=== PATIENT | male | born 1980 | race Caucasian/White ===

== ENCOUNTER 2016-06-30 09:45 | Observation (INO) | payer MEDICAID ==
[~2016-06-30 09:45] MED LIST: ALLOPURINOL300 M1 PO; BACTRIM; BACTRIM DS TAB1 EAC2 PO; COLACE100 M1 PO; COMPAZINE10 MG PO; MILK OF MAGNESIA PO; MIRALAX17 G2 PO; NO HOME MEDICATION XX; OMEPRAZOLE20 M3 PO; WELLBUTRIN XL150 M1 PO; ZOFRAN8 M1 PO
[2016-06-30] MEDS ORDERED: NORCO 5-325 TA1 EACH PO (10:33)
[2016-06-30] MEDS ORDERED: ZOFRAN8 M1 PO (10:33)
[2016-06-30] MEDS ORDERED: CLARITIN10 M6 PO (10:33)
[2016-06-30] MEDS ORDERED: BACTRIM DS TAB1 EAC2 PO (10:42)
[2016-06-30 10:56] LABS: EOS % 11.1 % (0-7); HGB-HEMOGLOBIN 12.5 gm/dl (13.5-17.0); LYMPH % 80.5 % (20-45); MCH (MEAN CORPUSCULAR HGB) 31.1 pg (28.0-32.0); MCHC MEAN CORPUSCULAR HGB CONC 34.7 % (32.0-36.0); MCV (MEAN CELL VOLUME) 89.6 fl (82.0-96.0); MEAN PLATELET VOLUME 10.7 cmc (9.4-12.4); MONO % 2.8 % (0-12); PLATELET COUNT 111 tho/cmm (150-450); RED BLOOD COUNT 4.02 mil/cmm (4.40-5.70); RED CELL DISTRIBUTION WIDTH 13.1 % (12.4-16.4)
[2016-06-30 11:03] LABS: BASO % 5.6 % (0-2); LYMPH ABSOLUTE COUNT 0.3 tho/cmm (0.8-4.5)
[2016-06-30 11:05] LABS: WHITE BLOOD COUNT 0.4 tho/cmm (4.0-10.0)
[2016-06-30 11:13] LABS: ALB/GLOB RATIO 0.8 (0.8-2.0); ALBUMIN 3.2 g/dl (3.5-5.0); ALKALINE PHOSPHATASE 82 U/L (33-138); ALT/SGPT 26 U/L (12-78); ANION GAP 11 mmol/L (0-20); AST/SGOT 15 U/L (10-40); BILIRUBIN,TOTAL 0.6 mg/dl (0.0-1.5); BLOOD UREA NITROGEN 24 mg/dl (6-24); CARBON DIOXIDE-VENOUS 29 mmol/L (22-32); CHLORIDE 96 mmol/l (96-110); CREATININE 1.08 mg/dl (0.60-1.30); GLUCOSE 103 mg/dL (70-110); LIPASE 56 U/L (73-393); POTASSIUM 4.3 mmol/L (3.7-5.1); SODIUM 132 mmol/L (135-145); eGFR VALUE FOR BLACK >90 mL/Min
[2016-06-30 11:33] LABS: URINE BILIRUBIN NEGATIVE (NEG); URINE BLOOD SMALL (NEG); URINE GLUCOSE (UA) NEGATIVE (NEG); URINE KETONE NEGATIVE (NEG); URINE LEUKOCYTE ESTERASE NEGATIVE (NEG); URINE NITRITE NEGATIVE (NEG); URINE PROTEIN SMALL (NEG)
[2016-06-30 11:38] LABS: URINE APPEARANCE CLEAR; URINE COLOR YELLOW
[2016-06-30 11:46] LABS: URINE WBC 0-3 /[HPF] (0-5)
[2016-07-01 05:02] LABS: BASO % 2.7 % (0-2); EOS % 8.1 % (0-7); HCT-HEMATOCRIT 32.2 % (36.0-53.5); LYMPH % 75.7 % (20-45); LYMPH ABSOLUTE COUNT 0.3 tho/cmm (0.8-4.5); MCH (MEAN CORPUSCULAR HGB) 30.7 pg (28.0-32.0); MCHC MEAN CORPUSCULAR HGB CONC 34.2 % (32.0-36.0); MCV (MEAN CELL VOLUME) 89.9 fl (82.0-96.0); MEAN PLATELET VOLUME 10.2 cmc (9.4-12.4); MONO % 5.4 % (0-12); NEUTROPHILS % 8.1 % (40-80); PLATELET COUNT 104 tho/cmm (150-450); RED BLOOD COUNT 3.58 mil/cmm (4.40-5.70); RED CELL DISTRIBUTION WIDTH 13.3 % (12.4-16.4)
[2016-07-01 05:09] LABS: WHITE BLOOD COUNT 0.4 tho/cmm (4.0-10.0)
[2016-07-01 05:13] LABS: ANION GAP 12 mmol/L (0-20); BLOOD UREA NITROGEN 20 mg/dl (6-24); CALCIUM 8.8 mg/dl (8.5-10.5); CARBON DIOXIDE-VENOUS 28 mmol/L (22-32); CHLORIDE 98 mmol/l (96-110); CREATININE 1.05 mg/dl (0.60-1.30); GLUCOSE 112 mg/dL (70-110); POTASSIUM 4.6 mmol/L (3.7-5.1); SODIUM 133 mmol/L (135-145); eGFR VALUE FOR BLACK >90 mL/Min
[2016-07-01] MEDS ORDERED: MILK OF MAGNESIA PO (11:19)
[2016-07-01] MEDS ORDERED: COLACE100 M1 PO (11:19)
[2016-07-01] MEDS ORDERED: NEUPOGEN SC (11:19)
[2016-07-01] MEDS ORDERED: SENOKOT-S TABL1 EACH PO (11:20)
[2016-07-02] MEDS ORDERED: ULTRAM50 M1 PO (10:56)
[2016-11-11] MEDS ORDERED: FEOSOL325 M1 PO (17:47)
[2016-11-11] MEDS ORDERED: VITAMIN B-12250 MC2 PO (17:48)
[2016-11-11] MEDS ORDERED: PROTONIX40 M2 PO (17:48)
[2016-11-11] MEDS ORDERED: ATIVAN0.5 M1 PO (17:49)
[2016-11-11] MEDS ORDERED: DEXAMETHASONE4 M1 PO (17:50)
[2016-11-11] MEDS ORDERED: ZOFRAN4 M2 PO (17:52)
[2016-11-14] MEDS ORDERED: MIRALAX17 G2 PO (14:47)
[2016-11-14] MEDS ORDERED: SENNA S TABLET1 EACH PO (14:47)
[2016-11-14] MEDS ORDERED: MORPHINE SU15 MG/TAB PO (14:54)
[2016-11-14] MEDS ORDERED: STOP THE FOLLOWING (14:57)
== END 2016-07-02 13:15 ==
LOC: EDMED 09:45 → EMR2 13:41 → 5WF 15:07
PROVIDERS: Emergency Medicine; ADMIT Internal Medicine Medical Oncology
DX: R10.13 Epigastric pain (principal); C78.7 Secondary malignant neoplasm of liver and intrahepatic bile duct; C77.1 Secondary and unspecified malignant neoplasm of intrathoracic lymph nodes; C78.00 Secondary malignant neoplasm of unspecified lung; C62.90 Malignant neoplasm of unspecified testis, unspecified whether descended or undescended; D61.810 Antineoplastic chemotherapy induced pancytopenia; F17.210 Nicotine dependence, cigarettes, uncomplicated; K59.00 Constipation, unspecified; Z08 Encounter for follow-up examination after completed treatment for malignant neoplasm; Z79.899 Other long term (current) drug therapy; Z98.890 Other specified postprocedural states
CPT/HCPCS: G0378; J1447; J2212; J2270; J2405; J7030; Q9967

== ENCOUNTER 2016-09-11 18:17 | Emergency (ER) | payer MEDICAID ==
[~2016-09-11 18:17] MED LIST changes: +CLARITIN10 M6 PO; +NEUPOGEN SC; +NORCO 5-325 TA1 EACH PO; +SENOKOT-S TABL1 EACH PO; +ULTRAM50 M1 PO
[2016-09-11] MEDS ORDERED: DEXAMETHASONE4 M1 PO (19:48)
[2016-11-11] MEDS ORDERED: FEOSOL325 M1 PO (17:47)
[2016-11-11] MEDS ORDERED: PROTONIX40 M2 PO (17:48)
[2016-11-11] MEDS ORDERED: VITAMIN B-12250 MC2 PO (17:48)
[2016-11-11] MEDS ORDERED: ATIVAN0.5 M1 PO (17:49)
[2016-11-11] MEDS ORDERED: DEXAMETHASONE4 M1 PO (17:50)
[2016-11-11] MEDS ORDERED: ZOFRAN4 M2 PO (17:52)
[2016-11-14] MEDS ORDERED: MIRALAX17 G2 PO (14:47)
[2016-11-14] MEDS ORDERED: SENNA S TABLET1 EACH PO (14:47)
[2016-11-14] MEDS ORDERED: MORPHINE SU15 MG/TAB PO (14:54)
[2016-11-14] MEDS ORDERED: STOP THE FOLLOWING (14:57)
== END 2016-09-11 19:50 ==
LOC: EDMED 18:17
DX: T66.XXXA Radiation sickness, unspecified, initial encounter (principal); H53.2 Diplopia; H53.8 Other visual disturbances; C79.31 Secondary malignant neoplasm of brain; C78.00 Secondary malignant neoplasm of unspecified lung; C62.90 Malignant neoplasm of unspecified testis, unspecified whether descended or undescended; F17.200 Nicotine dependence, unspecified, uncomplicated; Z90.79 Acquired absence of other genital organ(s)